=== PATIENT | female | born 1955 | race Caucasian/White ===

== ENCOUNTER → 2020-11-17 | Outpatient (CLI) | payer MEDICARE ==
[~2020-11-17] MED LIST: ASCO100018 PO; ASCO1CAP2 PO; CHOL10003 PO; CYAN50003 PO; LUTE20TA PO; MAGN100T6 PO; MULT-449 PO; OMEG1CAP6 PO; POTA99TA19 PO; Selenium PO; Tumeric PO; UBID100C24 PO; ZINC220T2 PO; [UNRECOGNIZED DRUG - CODE] PO; [UNRECOGNIZED DRUG - OTHER] NAS; k2 PO
[2020-11-17 15:33] LABS: BASOPHILS % (AUTO) 1 % (0-1); EOSINOPHILS % (AUTO) 2 % (1-7); LYMPHOCYTES % (AUTO) 24 % (22-44); MEAN CORPUSCULAR HGB CONC 33.2 g/dL (32.4-35.8); MEAN PLATELET VOLUME 8.4 fL (7.4-10.4); MONOCYTES % (AUTO) 10 % (2-9); NEUTROPHILS % (AUTO) 63 % (42-75); PLATELET COUNT 355 x10^3/uL (130-400); RED BLOOD COUNT 4.69 x10^6/uL (3.82-5.3); RED CELL DISTRIBUTION WIDTH 15.2 % (9.6-15.2)
[2020-11-17 15:42] LABS: ALANINE AMINOTRANSFERASE 30 U/L (12-78); ALBUMIN 3.8 g/dL (3.4-5.0); ANION GAP 7 mmol/L (5-15); CALCIUM 8.9 mg/dL (8.5-10.1); CHLORIDE 106 mmol/L (98-107); CREATININE 1.04 mg/dL (0.55-1.02); INTERNATIONAL NORMALIZED RATIO 0.94 (0.93-1.1); PROTHROMBIN TIME 10.1 Seconds (9.6-11.5)
[2020-11-17 15:44] LABS: ALKALINE PHOSPHATASE 88 U/L (45-117); BILIRUBIN,TOTAL 0.3 mg/dL (0.2-1.0); TOTAL PROTEIN 7.9 g/dL (6.4-8.2)
== END | disposition home or self-care (01) ==
LOC: STAR 14:43
PROVIDERS: ATTEND Specialist
DX: Z01.818 Encounter for other preprocedural examination (principal); R10.2 Pelvic and perineal pain; N83.291 Other ovarian cyst, right side
CPT/HCPCS: 36415; 71046; 80053; 85025; 85610; 85730; 86304; 93005

== ENCOUNTER 2020-11-24 05:31 | Day surgery (SDC) | payer MEDICARE ==
[~2020-11-24] VITALS: Ht 160 cm; Wt 66.6 kg
[2020-11-24 06:13] VITALS: BP 125/74
[2020-11-24] MEDS ORDERED: LACTATED RINGERS 1,000 ML IV SCH (06:30)
[2020-11-24] MEDS ORDERED: CHLORHEXIDINE 15 ML UDC PO ONE (06:30)
[2020-11-24] MEDS ORDERED: HEPARIN 1,000 UNITS/ML, 10ML ONE (06:47)
[2020-11-24] MEDS ORDERED: BUPIVACAINE/PF-EPI 0.25% 1:200K ONE (06:47)
[2020-11-24] MEDS ORDERED: INDOCYANINE GREEN 25 MG VIAL ONE (06:48)
[2020-11-24] MEDS ORDERED: MIDAZOLAM 1 MG/ML, 2ML ONE (07:24)
[2020-11-24] MEDS ORDERED: FENTANYL PF 250 MCG/5ML ONE (07:24)
[2020-11-24] MEDS ORDERED: ROCURONIUM 10MG/ML,5ML ONE (07:32)
[2020-11-24] MEDS ORDERED: CEFAZOLIN 1,000 MG ONE ×2 (07:32→07:33)
[2020-11-24] MEDS ORDERED: PROPOFOL 10 MG/ML, 20ML ONE (07:32)
[2020-11-24] MEDS ORDERED: DEXAMETHASONE 4 MG/ML, 1ML ONE ×2 (07:33)
[2020-11-24] MEDS ORDERED: ONDANSETRON 2MG/ML, 2ML ONE (07:33)
[2020-11-24] MEDS ORDERED: SODIUM CHLORIDE 0.9% PF 10ML ONE (07:33)
[2020-11-24] MEDS ORDERED: LIDOCAINE-MPF 2% ,5ML ONE (07:33)
[2020-11-24] MEDS ORDERED: EPHEDRINE 50 MG/ML, 1ML ONE (07:39)
[2020-11-24] MEDS ORDERED: SUGAMMADEX 200 MG/2 ML IVPush ONE (07:39)
[2020-11-24] MEDS ORDERED: LABETALOL 5MG/ML, 20ML IV PRN (10:30)
[2020-11-24] MEDS ORDERED: FENTANYL PF 100 MCG/2ML IV PRN (10:30)
[2020-11-24] MEDS ORDERED: PROMETHAZINE 25 MG/ML, 1ML IVPush PRN (10:30)
[2020-11-24] MEDS ORDERED: MEPERIDINE/PF 25MG/0.5ML IVPush PRN (10:30)
[2020-11-24] MEDS ORDERED: ACETAMINOPHEN 325 MG TABLET PO PRN (10:30)
[2020-11-24] MEDS ORDERED: ONDANSETRON 2MG/ML, 2ML IVPush PRN (10:30)
[2020-11-24] MEDS ORDERED: hydrALAzine 20 MG/ML, 1ML IV PRN (10:30)
[2020-11-24] MEDS ORDERED: OXYcodone 5 MG/5 ML ORAL.SOL UDC PO PRN (10:30)
[2020-11-24] MEDS ORDERED: HYDROmorphone 1 MG/ML, 1ML INJ IVPush PRN (10:30)
== END 2020-11-24 12:20 | disposition home or self-care (01) ==
LOC: OUT 05:31
PROVIDERS: ATTEND Specialist
DX: D27.0 Benign neoplasm of right ovary (principal); N73.6 Female pelvic peritoneal adhesions (postinfective); N94.89 Other specified conditions associated with female genital organs and menstrual cycle; K76.89 Other specified diseases of liver; Z79.899 Other long term (current) drug therapy; Z90.710 Acquired absence of both cervix and uterus; Z88.8 Allergy status to other drugs, medicaments and biological substances
CPT/HCPCS: 36415; 58661; 86850; 86900; 86923; 88112; 88305; 88331; J0690; J1100; J1644; J2250; J2405; J2704; J3010; J7120